=== PATIENT | female | born 1980 | race Caucasian/White ===

== ENCOUNTER → 2022-07-29 | Outpatient (CLI) | payer OTHER | LOC: EDBD 11:15 → MAMMO 11:15 | PROVIDERS: ATTEND Internal Medicine | DX: Z12.31 Encounter for screening mammogram for malignant neoplasm of breast (principal) | CPT/HCPCS: 77067 ==

== ENCOUNTER → 2022-08-28 | Outpatient (CLI) | payer OTHER | LOC: MAMMO 12:43 | PROVIDERS: ATTEND Internal Medicine | DX: R92.8 Other abnormal and inconclusive findings on diagnostic imaging of breast (principal) ==